=== PATIENT | female | born 1980 | race Caucasian/White ===

== ENCOUNTER 2023-09-01 08:48 | Outpatient (CLI) | payer OTHER ==
--- NOTE | 2023-09-01 17:43 | MRI Report ---
PROCEDURE: Lumbar Spine WO INDICATIONS: LOW BACK PAIN TECHNIQUE: Noncontrast sagittal T1 spin echo and T2 fast echo, sagittal STIR, axial T1 and T2 fast spin echo thr ough the lumbar spine. In cases with scoliosis, additional coronal T2 fast spin echo may be performe d. COMPARISON: None. FINDINGS: Image quality: Excellent. Alignment and Curvature: There is normal bony alignment. Bone Marrow: Marrow is of normal overall signal. No acute vertebral body compression fractures. Spinal Cord: Conus medullaris terminates at the L1-L2 level. Visualized cord demonstrates normal si gnal and size. Paraspinous Soft Tissues: No paravertebral masses. T12-L1: Normal in appearance. L1-L2: Normal in appearance. L2-L3: Annulus tear plus disc bulge bulge. Facet hypertrophy. No significant canal stenosis or for aminal stenosis. L3-L4: Annulus tear plus disc bulge bulge. Facet hypertrophy. No significant canal stenosis or fora brenna stenosis. L4-L5: Annulus tear plus disc bulge. Facet hypertrophy. Mild canal stenosis. Mild right foraminal s tenosis. L5-S1: Disc bulge. Facet hypertrophy. No canal stenosis. Moderate left foraminal stenosis with mild flattening deformity on the exiting left L5 nerve root. IMPRESSION: 1. Multilevel underlying facet arthropathy. 2. Multilevel annulus tears plus disc bulges. 3. Mild canal stenosis at L4-L5. 4. Moderate left foraminal narrowing at L5-S1. Reviewed by: Erik Bradshaw MD on 09/01/2023 5:41 PM PDT Approved by: Erik Bradshaw MD on 09/01/2023 5:41 PM PDT Station ID: [id number]
== END 2023-09-01 08:49 | disposition home or self-care (01) ==
LOC: DI 08:48
PROVIDERS: ATTEND Nurse Practitioner Family
DX: M51.36 Other intervertebral disc degeneration, lumbar region (principal); M48.061 Spinal stenosis, lumbar region without neurogenic claudication; M47.816 Spondylosis without myelopathy or radiculopathy, lumbar region; M51.37 Other intervertebral disc degeneration, lumbosacral region; M48.07 Spinal stenosis, lumbosacral region; M47.817 Spondylosis without myelopathy or radiculopathy, lumbosacral region